=== PATIENT | male | born 1950 | race Caucasian/White ===

== ENCOUNTER 2017-09-16 00:13 | Emergency (ER) | payer OTHER ==
[~2017-09-16] VITALS: Ht 175.3 cm; Wt 56.7 kg
[2017-09-16] MEDS ORDERED: PRAVASTATIN SOD40 MG PO (00:34)
--- NOTE | 2017-09-16 20:25 | EKG ---
[facility] [address] [place] [address] Signed Normal sinus rhythm Left axis deviation Incomplete right bundle branch block Nonspecific ST abnormality Abnormal ECG No previous ECGs available Confirmed by LIGIA CARPENTER MD ([id number]) on 09/16/2017 8:25:08 PM Electronically Signed By: LIGIA CARPENTER MD 09/16/172024 PATIENT NAME: ANEESHFERMIN Suni Electrocardiogram DATE OF : 46 PHYSICIAN: LIGIA CARPENTER MD REPORT #: [id number] REPORT IS CONFIDENTIAL AND NOT TO BE RELEASED WITHOUT AUTHORIZATION
== END 2017-09-16 03:30 | disposition home or self-care (01) ==
LOC: ED 00:13
DX: R55 Syncope and collapse (principal); M79.621 Pain in right upper arm; M79.622 Pain in left upper arm; E78.00 Pure hypercholesterolemia, unspecified; Z88.5 Allergy status to narcotic agent; Z79.899 Other long term (current) drug therapy; Z98.890 Other specified postprocedural states
CPT/HCPCS: 70450; 80053; 84484; 85025; 93005; 93010; 99284; J7030